=== PATIENT | male | born 1950 | race African-American/Black ===

== ENCOUNTER 2017-05-04 23:49 | Emergency (ER) | payer MEDICARE, OTHER ==
[~2017-05-04] VITALS: Ht 190.5 cm; Wt 99.0 kg
[2017-05-04 23:51] VITALS: BP 203/99; PULSE 82; RESP 16; TEMP 98.2; O2SAT 100
[2017-05-05] MEDS ORDERED: SITA50 PO (01:24)
[2017-05-05] MEDS ORDERED: LISI-515 PO (01:24)
[2017-05-05] MEDS ORDERED: GLIP10TA6 PO (01:24)
[2017-05-05 01:26] VITALS: BP 183/86; PULSE 70; RESP 18; O2SAT 99
[2017-05-05] MEDS ORDERED: DICL50TA3 PO (01:37)
[2017-05-05] MEDS ORDERED: CYCL1TAB29 PO (01:37)
--- NOTE | 2017-05-05 01:40 | PD ---
HPI Chief Complaint: Back/ Neck Pain or Injury Time Seen by Provider: 01:38 Travel History International Travel<30 days: No Contact w/Intl Traveler<30days: No Traveled to known affect area: No History of Present Illness HPI 67-year-old black male presents to emergency department complains of acute exacerbation of chronic back pain. He states that he came from the [facility] to visit family this week. He's been in town for the past 3 days. He plans on leaving in approximately 4 days. He states that he did not have any direct trauma. No acute bowel or bladder changes. No focal numbness or tingling. He states that he is supposed to have back surgery but has declined. He is being treated for hypertension and diabetes as well. Pain is mild to moderate. Worse with movement. Some relief of remaining still. PFSH Past Medical History Narrative Medical Diabetes, hypertension, chronic back pain Diabetes: Yes Patient Takes Glucophage: No Diminished Hearing: No Hypertension: Yes Tetanus Vaccination: Unknown Influenza Vaccination: No Past Surgical History Narrative Surgical Lumbar discectomy Social History Alcohol Use: No Tobacco Use: No Substance Use: No Allergies-Medications (Allergen,Severity, Reaction): Coded Allergies: No Known Allergies (Unverified , 05/04/17) Reported Meds & Prescriptions Reported Meds & Active Scripts Active Flexeril (Cyclobenzaprine HCl) 10 Mg Tab 10 Mg PO TID Diclofenac Sodium DR (Diclofenac Sodium) 50 Mg Tabdr 50 Mg PO TID Reported Glipizide 10 Mg Tab 10 Mg PO DAILY Take 30 minutes before a meal Januvia (Sitagliptin Phosphate) 50 Mg Tab 50 Mg PO DAILY Lisinopril 20 Mg Tab 20 Mg PO DAILY Review of Systems Except as stated in HPI: all other systems reviewed are Neg Physical Exam Narrative GENERAL: Well-developed, well-nourished in no acute distress. Nontoxic appearing. HEAD: Normocephalic, atraumatic. EYES: Pupils equal round and reactive. Extraocular motions intact. No scleral icterus. No injection or drainage. ENT: TMs clear without erythema. The external auditory canals clear. Nose: clear . Posterior pharynx is pink and moist. No tonsillar edema or exudate. Uvula midline. Airway patent. NECK: Trachea midline.Supple, nontender, moves head freely. No central bony tenderness or spasm. CARDIOVASCULAR: Regular rate and rhythm without murmurs, gallops, or rubs. RESPIRATORY: Clear to auscultation. Breath sounds equal bilaterally. No wheezes , rales, or rhonchi. GASTROINTESTINAL: Abdomen soft, non-tender, nondistended. No hepato-splenomegaly , or palpable masses. No guarding. EXTREMITIES: No clubbing, cyanosis, or edema. No joint tenderness, effusion, or edema noted. BACK: Nontender without deformity or crepitance. No flank tenderness. No reproducible tenderness. No spasm. No saddle anesthesia. Good pulses. Sits up in bed at 90 moves freely. Data Data Last Documented VS Vital Signs Date Time Temp Pulse Resp B/P Pulse Ox O2 Delivery O2 Flow Rate FiO2 05/05/17 01:26 70 18 183/86 99 Room Air 05/04/17 23:51 98.2 Orders Acetamin-Hydrocod 325-5 Mg ([place] 5-325 (05/05/17 01:45) Ibuprofen (Motrin) (05/05/17 01:45) MDM Medical Decision Making Medical Screen Exam Complete: Yes Emergency Medical Condition: Yes Medical Record Reviewed: Yes Differential Diagnosis MDM: High Differential diagnoses: Fracture, sprain, strain, HNP, nerve or vascular injury , epidural abscess, pilonidal cyst Narrative Course Patient given 1 Lortab 5 and 600 mg of ibuprofen. This acute exacerbation of chronic back pain Diagnosis Primary Impression: Acute exacerbation of chronic low back pain Patient Instructions: Narcotic given in the ED, General Instructions Additional Instructions: Rest. Ice for the next 3 days followed by heat . Flexeril and Voltaren. Follow-up with a primary care doctor in one week. Return to the ER for emergencies. Med/Other Pt SpecificInfo: Prescription(s) given Scripts Cyclobenzaprine (Flexeril)10 Mg Tab10 Mg PO TID #21 TAB Prov:Lauren Galindo MD 05/05/[address] 50 Mg Tabdr50 Mg PO TID #21 TAB Prov:Lauren Galindo MD 05/05/17 Disposition: 01 DISCHARGE HOME Condition: Stable Seth Pettit May 05, 2017 01:40
[2017-05-05] MEDS ORDERED: IBUPROFEN 600 MG TAB PO ONE (01:45)
[2017-05-05] MEDS ORDERED: ACETAMINOPHEN/HYDROcodone 325 MG/5 MG TAB PO ONE (01:45)
== END 2017-05-05 02:53 | disposition home or self-care (01) ==
LOC: NEPD 23:49
DX: M54.5 Low back pain (principal); G89.29 Other chronic pain; I10 Essential (primary) hypertension
CPT/HCPCS: 99284